=== PATIENT | female | born 1950 | race Caucasian/White ===

== ENCOUNTER 2024-04-14 11:06 | Emergency (ER) | payer MEDICARE, OTHER ==
[~2024-04-14] VITALS: Ht 147.3 cm; Wt 83.9 kg
[~2024-04-14 11:06] MED LIST: ALBU90OI6 INH; ASPI325 PO; ASPI81CH PO; ATOR10 PO; Ativan0.5 MG PO; B Complex #11 EACH PO; CYCL10 PO; DULO60; Estradiol1 MG PO; GABA300 PO; GABA300T24 PO; HYDR1TAB94 PO; IBUP800 PO; LANS30EC PO; LAVAP17G PO; LIOT25 PO; LORA2 PO; LOSARTAN-HCTZ1 EAC2 PO; LOSHYD PO; MORPHINE SULFAT20 MG PO; OXCA300 PO; OXYC1TAB11 PO; OXYC5 PO; PRAM.5 PO; PROBIOTIC1 EAC1 PO; PROP80ER PO; Percocet 5-3251 EACH PO; SERT100 PO; TIZANIDINE HCL4 MG PO; [UNRECOGNIZED DRUG - REMARK]
[2024-04-14] MEDS ORDERED: Ondansetron HCl 2 MG / ML 2ML Vial IV ONE (11:45)
[2024-04-14] MEDS ORDERED: HYDROmorphone HCl/Pf 1MG SYR IV ONE ×2 (11:45→13:55)
[2024-04-14 11:49] LABS: BASOPHILS ABSOLUTE AUTO 0.03 K/mm3 (0.00-0.23); BASOPHILS PERCENT AUTO 0 % (0-2); EOSINOPHILS ABSOLUTE AUTO 0.28 K/mm3 (0.00-0.68); EOSINOPHILS PERCENT AUTO 3 % (0-6); Hematocrit 30.7 % (33.0-51.0); Hemoglobin 10.3 g/dL (11.5-16.0); IMMATURE GRAN ABSOLUTE AUTO 0.06 K/mm3 (0.00-0.10); IMMATURE GRAN PERCENT AUTO 1 % (0-1); LYMPHOCYTES ABSOLUTE AUTO 1.83 K/mm3 (0.84-5.20); LYMPHOCYTES PERCENT AUTO 21 % (21-46); MONOCYTES ABSOLUTE AUTO 1.01 K/mm3 (0.16-1.47); MONOCYTES PERCENT AUTO 11 % (4-13); Mean Corpuscular HGB 30.6 pg (26.0-34.0); Mean Corpuscular HGB Conc 33.6 g/dL (31.5-36.5); Mean Corpuscular Volume 91 fL (80-100); Mean Platelet Volume 9.3 fL (9.1-12.4); NEUTROPHILS ABSOLUTE AUTO 5.63 K/mm3 (1.96-9.15); NEUTROPHILS PERCENT AUTO 64 % (41-73); Platelet Count 324 K/mm3 (150-400); RDW Coefficient Variation 13.7 % (11.7-14.2); RDW Standard Deviation 45.5 fL (35.1-46.3); Red Blood Cell Count 3.37 M/mm3 (3.80-5.20); White Blood Cell Count 8.84 K/mm3 (4.00-11.30)
[2024-04-14 12:07] LABS: Albumin, Blood 2.7 g/dL (3.4-5.0); Albumin/Globulin Ratio 0.8 (0.8-1.8); Bilirubin, Total 0.8 mg/dL (0.1-1.0); Calcium, Blood 8.2 mg/dL (8.5-10.1); Creatinine, Blood 0.63 mg/dL (0.40-1.00); Globulin, Blood 3.5 g/dL (2.2-4.0); Potassium, Blood 4.2 mmol/L (3.5-5.5); Total Protein, Blood 6.2 g/dL (6.4-8.2)
[2024-04-14 15:15] LABS: Source, Urine Voided
[2024-04-14 15:18] LABS: Appearance, Urine Clear (Clear); Bilirubin, Urine Neg (Neg); Blood, Urine Neg (Neg); Color, Urine Pale Yellow (P-Yellow); Glucose Qualitative, Urine Neg (Neg); Ketones, Urine Neg (Neg); Leukocyte Esterase, Urine Neg (Neg); Nitrite, Urine Neg (Neg); Protein, Urine Neg (Neg); Specific Gravity, Urine 1.005 (1.003-1.022); Urobilinogen, Urine NORM (Normal)
[2024-04-14] MEDS ORDERED: Ketorolac Tromethamine 30mg Vial IV ONE (15:40)
[2024-04-14] MEDS ORDERED: LAVAP4L PO (16:07)
[2024-04-14] MEDS ORDERED: METPRE4DP PO (16:07)
[2024-04-14 16:15] VITALS: BP 123/47
[2024-04-14] MEDS ORDERED: Primidone50 MG PO (16:28)
[2024-04-14] MEDS ORDERED: Aspir 8181 MG PO (16:28)
[2024-04-14] MEDS ORDERED: METO50 PO (16:50)
[2024-04-14] MEDS ORDERED: OXYC10TA19 PO (16:51)
[2024-04-14] MEDS ORDERED: VITAMIN D5000 UNIT PO (16:51)
[2024-04-14] MEDS ORDERED: Robaxin750 MG PO (16:51)
[2024-04-14] MEDS ORDERED: LORA.5 PO (16:52)
[2024-04-14] MEDS ORDERED: LOSA50 PO (16:52)
[2024-04-14] MEDS ORDERED: CLIMARA1 EACH (16:52)
[2024-04-14] MEDS ORDERED: AMLO5 PO (16:53)
[2024-04-14] MEDS ORDERED: VENL25 PO (16:53)
== END 2024-04-14 16:20 | disposition home or self-care (01) ==
LOC: ER 11:06
PROVIDERS: Emergency Medicine
DX: G89.18 Other acute postprocedural pain (principal); M54.50 Low back pain, unspecified; K59.00 Constipation, unspecified; I10 Essential (primary) hypertension; Z88.0 Allergy status to penicillin; Z88.2 Allergy status to sulfonamides; Z88.8 Allergy status to other drugs, medicaments and biological substances; Z79.82 Long term (current) use of aspirin; Z79.899 Other long term (current) drug therapy
CPT/HCPCS: 51701; 74177; 80053; 81003; 85025; 96374-59; 96375; 96376; 99284-25; J1171; J1885; J2405; Q9967